=== PATIENT | female | born 1975 | race Caucasian/White ===

== ENCOUNTER 2017-03-18 14:16 | Observation (INO) | payer BC ==
[2017-03-18] MEDS ORDERED: Aspirin Low Dose CHEW TAB* 81 MG PO ONE (15:10)
[2017-03-18 15:42] LABS: Hematocrit 34 % (35-47); Hemoglobin 10.5 g/dl (12.0-16.0); Mean Corpuscular HGB Conc 31 g/dl (31-36); Mean Corpuscular Hemoglobin 22 pg (27-31); Mean Corpuscular Volume 71 fL (80-97); Mean Platelet Volume 8 um3 (7.4-10.4); Red Blood Count 4.75 10^6/ul (4.0-5.4); Red Cell Distribution Width 16 % (10.5-15); White Blood Count 9.2 10^3/ul (3.5-10.8)
--- NOTE | 2017-03-18 15:43 | RAD ---
INDICATION: Chest pain. COMPARISON: There are no prior studies available for comparison. TECHNIQUE: A portable view of the chest was obtained. FINDINGS: Cardiac and mediastinal contours appear to be within normal limits. The lungs are clear. No pleural effusion is seen. IMPRESSION: NO EVIDENCE FOR ACUTE DISEASE.
[2017-03-18 15:44] LABS: Add Diff/Slide Review? Slide Review Added; Comments Flag Yes
[2017-03-18 16:09] LABS: Albumin 4.3 g/dL (3.2-5.2); BUN/Creatinine Ratio 21.6 (8-20); Calcium 9.2 mg/dL (8.6-10.3); EGFR African American 111.8 (>60); EGFR Non-African American 86.9 (>60); Globulin 2.9 g/dL (2-4); Potassium 3.9 mmol/L (3.5-5.0); Total Bilirubin 0.4 mg/dL (0.2-1.0); Total Protein 7.2 g/dL (6.4-8.9)
[2017-03-18] MEDS ORDERED: Ondansetron INJ* 2 MG/ML VIAL IV PRN (16:54)
[2017-03-18] MEDS ORDERED: Acetaminophen TAB* 325 MG PO PRN (16:54)
[2017-03-18] MEDS ORDERED: Iohexol 350* (CONTRAST) 500 ML MDV IV ONE (17:04)
--- NOTE | 2017-03-18 17:04 | ED ---
I, Oh,Laureano, scribed for Lorenza Bell MD on 03/18/17 at 1601 . HPI Chest Pain - HPI Summary HPI Summary: This 41 y/o female presents to ED for intermittent, persistent chest pressure since 2 weeks ago. Pt also reports fatigue and bilat calf pain. Deep breath does not make pain worse. Pt is noted to be tearful at triage. She is calm and answering oriented question calmly at time of initial evaluation. She was evaluated by her primary care provider, Dr. Lima, 5 days ago, and currently have CTA chest upcoming. PMHx includes HTN. Denies Hx of CAD or other cardiac dz. FHx is negative for cardiac dz but positive for unspecified blood clotting disorder to mother. Pt lives with . Nonsmoker and nondrinker. Pt has remote hx of control use. - History of Current Complaint Chief Complaint: EDChestWallPain Time Seen by Provider: 03/18/17 15:12 Hx Obtained From: Patient, Family/Carpet Inspector Finished - present at bedside, Medical Records Onset/Duration: Started Weeks Ago, Atraumatic, Still Present Timing: Intermittent Pain Intensity: 3 Pain Scale Used: 0-10 Numeric Chest Pain Location: Diffuse Chest Pain Radiates: No Character: Pressure/Squeezing Aggravating Factor(s): Nothing Alleviating Factor(s): Nothing Associated Signs and Symptoms: Positive: Chest Pain, Calf Pain/Swelling - bilat calf pain, Other: - fatigue - Allergy/Home Medications Allergies/Adverse Reactions: Allergies Allergy/AdvReac Type Severity Reaction Status Date / Time Penicillins Allergy Unknown Verified 03/18/17 14:22 Reaction Details Sulfa Antibiotics Allergy Unknown Verified 03/18/17 14:22 Reaction Details Home Medications: Home Medications Losartan TAB* [Cozaar TAB*] 50 mg PO DAILY 03/18/17 [History Confirmed 03/18/17] cloNIDine TAB* [Catapres 0.1 MG TAB*] 0.1 mg PO BEDTIME 03/18/17 [History Confirmed 03/18/17] PMH/Surg Hx/FS Hx/Imm Hx Cardiovascular History: Reports: Hx Hypertension Denies: Hx Coronary Artery Disease Infectious Disease History: Denies: Traveled Outside the [place] in Last 30 Days - Family History Known Family History: Positive: Blood Disorder - Mother with possible DVT, Other - Mother -- lung CA - Social History Lives: With Family - Alcohol Use: None Hx Substance Use: No Substance Use Type: Reports: None Hx Tobacco Use: No Smoking Status (MU): Never Smoked Tobacco Review of Systems Positive: Fatigue. Negative: Fever Positive: Chest Pain - chest pressure Positive: Other - bilat calf pain All Other Systems Reviewed And Are Negative: Yes Physical Exam Triage Information Reviewed: Yes Vital Signs On Initial Exam: Initial Vitals Temp Pulse Resp BP Pulse Ox 99.8 F 105 20 179/103 100 03/18/17 14:17 03/18/17 14:17 03/18/17 14:17 03/18/17 14:17 03/18/17 14:17 Vital Signs Reviewed: Yes Appearance: Positive: Well-Appearing, No Pain Distress Skin: Positive: Warm, Skin Color Reflects Adequate Perfusion, Dry Head/Face: Positive: Normal Head/Face Inspection Eyes: Positive: EOMI, DUC Neck: Positive: Supple, Nontender Respiratory/Lung Sounds: Positive: Clear to Auscultation, Breath Sounds Present Cardiovascular: Positive: RRR, Pulses are Symmetrical in both Upper and Lower Extremities. Negative: Murmur, Rub, Leg Edema Left, Leg Edema Right, Other - gallops Musculoskeletal: Positive: Strength/ROM Intact Neurological: Positive: Sensory/Motor Intact, Alert, Oriented to Person Place, Time, CN Intact II-III Psychiatric: Positive: Other - teary eyes AVPU Assessment: Alert Diagnostics - Vital Signs Vital Signs Temp Pulse Resp BP Pulse Ox 03/18/17 14:17 99.8 F 105 20 179/103 100 - Laboratory Lab Results: Lab Results 03/18/17 03/18/17 03/18/17 Range/Units 15:25 15:25 15:25 WBC 9.2 (3.5-10.8) 10^3/ul RBC 4.75 (4.0-5.4) 10^6/ul Hgb 10.5 L (12.0-16.0) g/dl Hct 34 L (35-47) % MCV 71 L (80-97) fL MCH 22 L (27-31) pg MCHC 31 (31-36) g/dl RDW 16 H (10.5-15) % Plt Count 306 (150-450) 10^3/ul MPV 8 (7.4-10.4) um3 Neut % (Auto) 67.7 (38-83) % Lymph % (Auto) 21.5 L (25-47) % Whitley % (Auto) 7.8 (1-9) % Eos % (Auto) 2.3 (0-6) % Baso % (Auto) 0.7 (0-2) % Absolute Neuts (auto) 6.2 (1.5-7.7) 10^3/ul Absolute Lymphs (auto) 2.0 (1.0-4.8) 10^3/ul Absolute Monos (auto) 0.7 (0-0.8) 10^3/ul Absolute Eos (auto) 0.2 (0-0.6) 10^3/ul Absolute Basos (auto) 0.1 (0-0.2) 10^3/ul Absolute Nucleated RBC 0.01 10^3/ul Nucleated RBC % 0.1 D-Dimer, Quantitative (Less Than 230) ng/mL Sodium 137 (133-145) mmol/L Potassium 3.9 (3.5-5.0) mmol/L Chloride 103 (101-111) mmol/L Carbon Dioxide 29 (22-32) mmol/L Anion Gap 5 (2-11) mmol/L BUN 16 (6-24) mg/dL Creatinine 0.74 (0.51-0.95) mg/dL Est GFR ( Amer) 111.8 (>60) Est GFR (Non-Af Amer) 86.9 (>60) BUN/Creatinine Ratio 21.6 H (8-20) Glucose 117 H (70-100) mg/dL Lactic Acid 0.8 (0.5-2.0) mmol/L Calcium 9.2 (8.6-10.3) mg/dL Total Bilirubin 0.40 (0.2-1.0) mg/dL AST 14 (13-39) U/L ALT 11 (7-52) U/L Alkaline Phosphatase 56 (34-104) U/L Troponin I 0.00 (<0.04) ng/mL Total Protein 7.2 (6.4-8.9) g/dL Albumin 4.3 (3.2-5.2) g/dL Globulin 2.9 (2-4) g/dL Albumin/Globulin Ratio 1.5 (1-3) Beta HCG, Quant 1.54 mIU/mL 03/18/17 Range/Units 15:25 WBC (3.5-10.8) 10^3/ul RBC (4.0-5.4) 10^6/ul Hgb (12.0-16.0) g/dl Hct (35-47) % MCV (80-97) fL MCH (27-31) pg MCHC (31-36) g/dl RDW (10.5-15) % Plt Count (150-450) 10^3/ul MPV (7.4-10.4) um3 Neut % (Auto) (38-83) % Lymph % (Auto) (25-47) % Whitley % (Auto) (1-9) % Eos % (Auto) (0-6) % Baso % (Auto) (0-2) % Absolute Neuts (auto) (1.5-7.7) 10^3/ul Absolute Lymphs (auto) (1.0-4.8) 10^3/ul Absolute Monos (auto) (0-0.8) 10^3/ul Absolute Eos (auto) (0-0.6) 10^3/ul Absolute Basos (auto) (0-0.2) 10^3/ul Absolute Nucleated RBC 10^3/ul Nucleated RBC % D-Dimer, Quantitative 231 H (Less Than 230) ng/mL Sodium (133-145) mmol/L Potassium (3.5-5.0) mmol/L Chloride (101-111) mmol/L Carbon Dioxide (22-32) mmol/L Anion Gap (2-11) mmol/L BUN (6-24) mg/dL Creatinine (0.51-0.95) mg/dL Est GFR ( Amer) (>60) Est GFR (Non-Af Amer) (>60) BUN/Creatinine Ratio (8-20) Glucose (70-100) mg/dL Lactic Acid (0.5-2.0) mmol/L Calcium (8.6-10.3) mg/dL Total Bilirubin (0.2-1.0) mg/dL AST (13-39) U/L ALT (7-52) U/L Alkaline Phosphatase (34-104) U/L Troponin I (<0.04) ng/mL Total Protein (6.4-8.9) g/dL Albumin (3.2-5.2) g/dL Globulin (2-4) g/dL Albumin/Globulin Ratio (1-3) Beta HCG, Quant mIU/mL Result Diagrams: 03/18/17 15:25 03/18/17 15:25 Lab Statement: Any lab studies that have been ordered have been reviewed, and results considered in the medical decision making process. - Radiology cxr Xray Interpretation: No Acute Changes Radiology Interpretation Completed By: Radiologist - EKG 1427 Cardiac Rate: NL EKG Rhythm: Sinus Rhythm ST Segment: Normal Ectopy: None Chest Pain Course/Dx - Course Course Of Treatment: 41 yo female in with long standing cp, one cad risk factor of htn, and family hx of dvt (mom later was diagnosed with cancer). CP was worse today at 230 pm and will need obv (as discussed with Dr. Velez) to fully rule her out. DDimer added on - Diagnoses Provider Diagnoses: Chest pain - Provider Notifications Discussed Care Of Patient With: Dr. Velez (Hospitalist) at 1617 PM Instructed by Provider To: Admit As Inpatient Discharge - Discharge Plan Condition: Stable Disposition: ADMITTED TO [facility] Referrals: Radha Lima MD [Primary Care Provider] - The documentation as recorded by the Alexi tello Soohyun accurately reflects the service I personally performed and the decisions made by me, Lorenza Bell MD.
--- NOTE | 2017-03-18 18:14 | RAD ---
INDICATION: Chest pain. COMPARISON: Correlation is made with a prior chest x-ray study from March 18, 2017. TECHNIQUE: A CT angiogram of the chest was performed with intravenous following intravenous injection of 102 ml of Omnipaque 350 nonionic contrast. Contiguous axial sections were obtained from the lung apices through the lung bases. Images were reconstructed in the coronal and sagittal planes. The exam was performed twice due to suboptimal opacification of the pulmonary arteries. FINDINGS: There is suboptimal opacification of the pulmonary arteries limiting the study. No intraluminal filling defect or pulmonary embolism is seen. The heart is within normal limits in size. No pericardial effusion is present. The thoracic aorta is normal in caliber and demonstrates homogeneous contrast opacification. No significant enlarged mediastinal or hilar lymph nodes are seen. The lungs are clear. No pleural effusion is seen. No significant focal osseous abnormality is seen. The results of this exam were discussed with the referring clinician. IMPRESSION: SUBOPTIMAL OPACIFICATION OF THE PULMONARY ARTERIES LIMITING THE EXAM, NO PULMONARY EMBOLISM IS SEEN. CONSIDER REPEAT IMAGING.
[2017-03-18] MEDS: amLODIPine TAB* 5 MG PO SCH (21:49)
--- NOTE | 2017-03-18 23:33 | HP ---
HISTORY AND PHYSICAL: DATE OF ADMISSION: 03/18/17 PRIMARY CARE PROVIDER: Dr. Lima. ATTENDING PHYSICIAN WHILE IN THE HOSPITAL: Era Velez DO *(report dictated by Star Colon NP). CHIEF COMPLAINT: Chest pain. HISTORY OF PRESENT ILLNESS: Ms. Salcido is a 41-year-old female patient. She carries a history of hypertension which the patient states she has been having difficulty with control over the last couple weeks. Dr. Lima has been working closely with the patient. She has increased her losartan recently and recently also added clonidine at bedtime, actually last . The patient states she had been taking her medication as prescribed, but she has noticed over the last couple weeks, she has had chest tightness and pressure in the center of her chest, both with and without exertion. She says that at times when she has this discomfort, she gets short of breath sometimes. Sometimes, she feels a little nauseous and she does not feel well. She also said that she has had some exertional chest pressure as well. She says that the frequency of this has been increasing as the intensity. She says that she did feel short of breath yesterday with the discomfort. She had discomfort today around 1:30 while at work. She works at a preschool. Again, center of her chest, radiating into her back. She just felt like she could not breathe and she felt like she was having some discomfort and did not feel right. She called her primary and at this point, it was felt that she should be evaluated in the ER because she was continuing to have these symptoms. She denies any recent fevers or chills. No rhinorrhea or sore throat. There has been no recent trips or travels. She denies having any calf discomfort or leg swelling and no pain with inspiration and no reproducible pain. Because of the recurrence of the symptoms and the fact that her story was concerning, hospitalist service was asked to evaluate for admission for possible acute coronary syndrome. PAST MEDICAL HISTORY: Significant for hypertension. PAST SURGICAL HISTORY: She had a . HOME MEDICATIONS: Include: 1. Losartan 50 mg daily. 2. Clonidine 0.1 mg at bedtime. ALLERGIES TO MEDICATIONS: Include PENICILLIN and SULFA. FAMILY HISTORY: Her mother had a history of lung cancer and DVT. Father had COPD. SOCIAL HISTORY: She does not smoke. She rarely drinks alcohol. She is with children. Surrogate decision maker is her , Rishi. REVIEW OF SYSTEMS: There is no documented fever. She denies having any significant weight change. There was no double vision. There is no ear discharge. She denies having any rhinorrhea. There is no sore throat. No thyroid enlargement. There was chest pain per my HPI. There was no orthopnea. No nocturnal dyspnea. There was no abdominal pain. No nausea. No vomiting. No dysuria. No frequency. No seizure. No loss of consciousness. No pruritus. No skin ulcerations. Review of 14 systems completed, all others negative. PHYSICAL EXAMINATION GENERAL: At this time, Ms. Salcido is a 41-year-old female patient. She is sitting in the ER stretcher. She does not appear to be in any acute distress. VITAL SIGNS: Blood pressure initially 179/103, now it is 149/93 with a pulse of 105 initially, now it is 95, respirations 18, O2 sat 100%, and temperature 98.6. HEENT: Head is atraumatic and normocephalic. Eyes: EOMs are intact. Sclerae are anicteric and not pale. Throat: Oral mucosa appears to be moist. No oropharyngeal erythema. NECK: Supple. LUNGS: Clear to auscultation bilaterally. No wheezes, rales, or rhonchi. HEART: Sounds S1, S2. Regular rate and rhythm. No murmurs, rubs, or gallops. ABDOMEN: Soft, flat, and nontender. Bowel sounds present. EXTREMITIES: Pulses were 2+ throughout. She is able to move all 4 extremities with 5/5 strength. NEUROLOGIC: The patient is awake, she is alert, and she is oriented x3. Tongue midline. Water Reclamation Systems Operator were equal. No gross focal deficits. SKIN: Grossly intact. LABORATORY DATA AND DIAGNOSTIC STUDIES: Today revealed WBC of 9.2, RBC of 4.75 , hemoglobin 10.5, hematocrit 34, platelet count 306. D-dimer was 231. Sodium 137, potassium 2.9, chloride of 103, bicarb 29, BUN 16, creatinine of 0.74, glucose 117, lactic 0.8, calcium 9.2. Total bili 0.4, AST 14, ALT 11, alk phos 56. Troponin 0. Albumin of 4.3. Beta HCG was 1.54. She had a chest x-ray obtained today, which revealed no evidence for acute disease. She had an EKG obtained today as well, which revealed a normal sinus rhythm, rate of 94. She did have some subtle depression in V5 and V4 only. There was wandering baseline. No T-wave inversions or any ST elevations and no previous EKG for comparison. Old medical records were reviewed. ASSESSMENT AND PLAN: Ms. Salcido is a 41-year-old female patient coming in to the ER today with complaints of chest discomfort with and without exertion and increasing in frequency and intensity and described as a pressure like someone in her chest, sometimes associated with shortness of breath and nausea. She will be admitted under observation status for: 1. Chest pain: This is concerning for possible acute coronary syndrome. Fortunately, her EKG does not show acute ischemia and the troponin initially was negative. My plan at this point is to cycle her troponins, order a stress test. If the troponin is elevated, I will get Cardiology involved. She did get an aspirin already. I will check a lipid panel in the morning. We will get an A1c and will continue to follow. The chest pain also may be related to uncontrolled hypertension. She recently was started on clonidine and it does not appear that she is tolerating this well. She is having insomnia since starting this and feeling restless which can be side effects of clonidine according to UpToDate and looking at the side effects of the medication. At this point, I would go ahead and stop the clonidine, put her on Norvasc at 10 mg daily at bedtime as this will help her. As also in the differential of this chest discomfort, she may be having esophageal spasm which a calcium channel stephon may help. So, I will put her on this medication for now and I will continue to monitor the chest pain. Again, we will do the workup and I am also getting a CTA because her D-dimer was mildly elevated. 2. Hypertension: Again, blood pressure initially when she came was in the 170s. I am going to add on Norvasc at bedtime 10 mg. I will continue the losartan and continue to follow. 3. DVT prophylaxis. She is low risk. She will be placed on SCDs. 4. Code status: Full code. 5. Fluids, electrolytes, and nutrition: She can have a heart healthy diet and n.p.o. after midnight. TIME SPENT: Time spent on the admission was approximately 60 minutes; greater than half the time was spent [id number] with the patient obtaining my history and physical, other half the time spent going over the plan of care with the patient and implementing plan of care. I did discuss the plan of care with my attending, Dr. Velez; she is in agreement. STAR COLON NP CC: Dr. Lima * [id number]/[facility] #: [id number] [place]
[2017-03-19 07:04] LABS: Hematocrit 34 % (35-47); Hemoglobin 10.7 g/dl (12.0-16.0); Mean Corpuscular HGB Conc 31 g/dl (31-36); Mean Corpuscular Hemoglobin 22 pg (27-31); Mean Platelet Volume 8 um3 (7.4-10.4); Red Blood Count 4.83 10^6/ul (4.0-5.4); Red Cell Distribution Width 17 % (10.5-15); White Blood Count 10.3 10^3/ul (3.5-10.8)
[2017-03-19 07:15] LABS: Comments Flag Yes; Mean Corpuscular Volume 71 fL (80-97)
[2017-03-19 07:16] LABS: BUN/Creatinine Ratio 14.3 (8-20); Calcium 8.9 mg/dL (8.6-10.3); EGFR African American 119.2 (>60); EGFR Non-African American 92.7 (>60); HDL Cholesterol 44.8 mg/dL; Potassium 3.8 mmol/L (3.5-5.0)
[2017-03-19] MEDS ORDERED: Aspirin EC Low Dose* 81 MG TAB.EC PO SCH (09:00)
[2017-03-19] MEDS ORDERED: Losartan TAB* 25 MG PO SCH (09:00)
--- NOTE | 2017-03-19 12:24 | RAD ---
Edited for charges. INDICATION: Chest pain, hypertension, family history of heart disease. COMPARISON: None. TECHNIQUE: 10.990 mCi of Tc-99m Myoview were administered IV. SPECT images of the heart were obtained. Later on the same day under the direction of Dr. Estrada, an exercise stress test was performed. The patient achieved a peak heart rate of 162 bpm, 85 % of the age- predicted maximum. Subsequently, the patient was given an IV injection of 25.370 mCi Tc- 99m Myoview. SPECT images of the heart were obtained and a gated wall motion study was performed. FINDINGS: Gated wall motion images were obtained at stress and demonstrate wall motion to be within normal limits. The calculated left ventricular ejection fraction is 64 % at stress. Estimated LEFT ventricular end diastolic volume is 77 mL. TID 1.08. Based on review of the attenuation corrected and non corrected images the distribution of radiopharmaceutical within the myocardium on the stress and rest images is within normal limits. Photopenia related to the RV insertion noted. No fixed or reversible regions of hypoperfusion evident. IMPRESSION: 1. No evidence for stress induced myocardial ischemia or presence of an infarct. 2. Normal left ventricular wall motion and ejection fraction. ASSESSMENT: LOW RISK. Based on imaging criteria from ACC/AHA 2002 Guideline Update for the Management of Patients With Chronic Stable Angina Table 23. Noninvasive Risk Stratification. MTDD
[2017-03-19 14:28] LABS: TSH (Thyroid Stimulating Horm) 4.46 mcIU/mL (0.34-5.60)
[2017-03-19 16:01] VITALS: BP 130/73
--- NOTE | 2017-03-19 18:24 | RAD ---
INDICATION: Elevated d-dimer. COMPARISON: There are no prior studies available for comparison. TECHNIQUE: Multiple real-time, color flow and Doppler tracings of both lower extremities were obtained. FINDINGS: The common femoral, femoral, profunda femoral and popliteal veins all demonstrate normal compressibility, augmentation with compression and phasic response with respiration. The posterior tibial and peroneal veins demonstrate normal compressibility and augmentation with compression. IMPRESSION: NO EVIDENCE FOR DEEP VENOUS THROMBOSIS.
[2017-03-19] MEDS: amLODIPine TAB* 5 MG PO SCH (18:45)
--- NOTE | 2017-03-20 22:48 | DS ---
CC: Dr. Radha Lima DISCHARGE SUMMARY: DATE OF ADMISSION: 03/18/17 DATE OF DISCHARGE: 03/19/17 PRIMARY CARE PROVIDER: Dr. Radha Lima. DISCHARGING PROVIDER: YARI Sawant. SUPERVISING PHYSICIAN: Maria Elena Clifton MD. PRIMARY DISCHARGE DIAGNOSES: 1. Chest pain. 2. Hypertension. DISCHARGE MEDICATIONS: 1. Losartan 50 mg p.o. daily. 2. Amlodipine 10 mg p.o. at bedtime. MEDICATION CHANGES: 1. Stop clonidine. 2. Start amlodipine. HOSPITAL IMAGIN. Chest x-ray demonstrates no evidence for acute disease. 2. CTA of the chest shows no evidence for PE, but there is suboptimal opacification of the pulmonar y arteries limiting the exam. 3. Lower extremity Dopplers shows no evidence for DVT. 4. Nuclear stress test is a low risk study without evidence for ischemia or infarct. 5. EKG shows sinus rhythm without ischemic changes. HOSPITAL COURSE: This is a 41-year-old female with history of hypertension, who presented to the em ergency department with complaints of chest pain and shortness of breath. The patient's symptoms lerma ve been intermittent and generally associated with exertion for the last couple of weeks. She has a strong family history of hypertension and has been seen by her primary care provider in order to ma nage her hypertension. Her dose of losartan had recently been increased and she was started on clon idine for additional blood pressure control. She reported that since starting clonidine, she was lerma ving difficulty sleeping and reported profound fatigue. She has also had a rather persistent headac he for several weeks. She is unable to state really when this started or any periods of relief. Sh e denies any significant influence in her headache symptoms since initiating or increasing some of h er antihypertensive medications. When the patient reached the hospital, initial labs were largely unremarkable. She had a CBC that d id show a microcytic anemia with hemoglobin of 10.5, MCV of 71. Her D-dimer was mildly elevated at 2 31. Comprehensive metabolic panel was within normal limits and initial troponin was negative. The patient was subsequently admitted to observation status and underwent serial troponins and stress te sting. The patient reported that she continued to have some intermittent pressure sensation in her chest, t kourtney of lesser severity during her time in the hospital. Serial troponins remained negative. Fasti ng cholesterol showed a total cholesterol of 178 with an LDL of 101 and HDL of 44. TSH was checked. TSH was checked which was slightly on the high side at 4.46, but still within normal limits. Her clonidine was discontinued in favor of amlodipine and her blood pressure control improved with that. At the time of admission in the emergency department, she had systolic pressures mostly in the 170 s and at the time of discharge, systolic pressures were between 130 and 140 mmHg. The patient underwent a CTA of her chest due to the elevated D-dimer and her complaints of chest jered n. This was read as no PE, but it was a suboptimal study. For this reason, rather than repeating th e study in this young female, a lower extremity Doppler ultrasound was performed to evaluate for pre sence of DVT which was negative. Her Well's score was 0 in combination with the negative lower extr emity Doppler, the probability of her chest pain being related to PE is extremely low. Stress testing was read as a low risk study. Discussed with the patient as to whether a workup had been completed by her primary care provider for secondary hypertension as she appears to be fairly a ctive, relatively young and a BMI of 24, severity of her hypertension is questionable in a young and otherwise healthy female. She states that she has a very strong family history of hypertension in all of her siblings starting at a very young age and did not think that this was usual. A TSH was a dded to her labs, which was essentially within normal limits. I would recommend serum catecholamine testing as well as a renal artery ultrasound. Her complaints of headache might simply be related to her hypertension, but thinking of a catecholamine producing tumor in this young female would be wor th investigation. DISPOSITION: The patient is being discharged to home with medication changes as outlined above. Re commend close followup with her primary care provider and the patient is instructed to continue to m onitor her blood pressure at home. As discussed above, would recommend serum catecholamine testing as well as renal artery ultrasound to evaluate for stenosis. YARI SAWANT [id number]/[facility] #: [id number]
== END 2017-03-19 19:03 | disposition home or self-care (01) ==
LOC: ED 14:16 → MEDTELE 16:51
PROVIDERS: ADMIT Hospitalist; ATTEND Internal Medicine
DX: R07.9 Chest pain, unspecified (principal); I10 Essential (primary) hypertension; Z79.899 Other long term (current) drug therapy; Z88.0 Allergy status to penicillin; Z88.2 Allergy status to sulfonamides; Z32.02 Encounter for pregnancy test, result negative
CPT/HCPCS: 36415; 71010; 71275; 78452; 80048; 80053; 80061; 83036; 83605; 84443; 84484; 84702; 85025; 85379; 93005; 93017; 93970; 99283; A9270-GY; A9502; G0378; Q9967

== ENCOUNTER 2020-03-08 12:47 | Emergency (ER) | payer BC ==
[2020-03-08] MEDS ORDERED: Labetalol IV* 5 MG/ML 20 ML VIAL IV PUSH ONE (14:01)
--- NOTE | 2020-03-08 14:08 | ED ---
Hypertension - HPI Summary HPI Summary: This patient is a 44 y/o female presenting to [facility] c/o elevated blood pressure. Patient has hx of HTN for which she takes Losartan 50 mg. She states she has been compliant with her medications. In the last couple of days she has been experiencing headaches and occasional dizziness. She has taken her blood pressure at home and it has been elevated. She denies chest pain, shortness of breath, fever, chills, nausea, vomiting, diarrhea, constipation. Denies any recent travel or sick contacts. Patient has been quarantined at home. - History of Current Complaint Chief Complaint: EDHypertension Stated Complaint: HIGH BLOOD PRESSURE Time Seen by Provider: 03/08/20 13:50 Hx Obtained From: Patient Onset/Duration: Started Days Ago, Still Present Timing: Lasting Days Aggravating Factor(s): Nothing Alleviating Factor(s): Nothing Associated Signs & Symptoms: Headaches, Dizziness, Other: - NEGATIVE: chest pain , SOB, fever, chills, nausea, vomiting, diarrhea, constipation - Allergies/Home Medications Allergies/Adverse Reactions: Allergies Allergy/AdvReac Type Severity Reaction Status Date / Time MS Penicillins [Penicillins] Allergy Unknown Verified 07/08/19 14:41 Reaction Details MS Sulfa Antibiotics Allergy Unknown Verified 07/08/19 14:41 [Sulfa Antibiotics] Reaction Details Home Medications: Home Medications Losartan TAB* [Cozaar TAB*] 50 mg PO DAILY 03/18/17 [History Confirmed 03/08/20] Norethindrone [Deblitane] 0.35 mg PO DAILY 03/08/20 [History Confirmed 03/08/20] PMH/Surg Hx/FS Hx/Imm Hx Endocrine/Hematology History: Denies: Hx Diabetes Cardiovascular History: Reports: Hx Angina - Pt describes chest pressure, Hx Hypertension Denies: Hx Coronary Artery Disease History: Denies: Hx Renal Disease Sensory History: Denies: Hx Contacts or Glasses, Hx Hearing Aid Opthamlomology History: Denies: Hx Contacts or Glasses - Surgical History Surgical History: Yes Surgery Procedure, Year, and Place: Had C section, TUBAL Infectious Disease History: No Infectious Disease History: Denies: Traveled Outside the [place] in Last 30 Days - Family History Known Family History: Positive: Blood Disorder - Mother with possible DVT, Other - Mother -- lung CA - Social History Alcohol Use: Rare Hx Substance Use: No Substance Use Type: Reports: None Hx Tobacco Use: No Smoking Status (MU): Never Smoked Tobacco Review of Systems Negative: Fever, Chills Negative: Chest Pain Negative: Shortness Of Breath Negative: Vomiting, Diarrhea, Nausea, Other - NEGATIVE: constipation Neurological/Mental Status: Other - POSITIVE: dizziness Positive: Headache All Other Systems Reviewed And Are Negative: Yes Physical Exam - Summary Physical Exam Summary: VITAL SIGNS: Reviewed. GENERAL: Patient is a well-developed and nourished female who is lying comfortable in the stretcher. Patient is not in any acute respiratory distress. Manual blood pressure is 198/124. HEAD AND FACE: No signs of trauma. No ecchymosis, hematomas or skull depressions. No sinus tenderness. EYES: PERRLA, EOMI x 2, No injected conjunctiva, no nystagmus. EARS: Hearing grossly intact. Ear canals and tympanic membranes are within normal limits. MOUTH: Oropharynx within normal limits. NECK: Supple, trachea is midline, no adenopathy, no JVD, no carotid bruit, no c- spine tenderness, neck with full ROM. CHEST: Symmetric, no tenderness at palpation LUNGS: Clear to auscultation bilaterally. No wheezing or crackles. CVS: Regular rate and rhythm, S1 and S2 present, no murmurs or gallops appreciated. ABDOMEN: Soft, non-tender. No signs of distention. No rebound no guarding, and no masses palpated. Bowel sounds are normal. EXTREMITIES: FROM in all major joints, no edema, no cyanosis or clubbing. NEURO: Alert and oriented x 3. No acute neurological deficits. Speech is normal and follows commands. SKIN: Dry and warm Triage Information Reviewed: Yes Vital Signs On Initial Exam: Initial Vitals Temp Pulse Resp BP Pulse Ox 98.3 F 83 18 194/133 100 03/08/20 12:48 03/08/20 12:48 03/08/20 12:48 03/08/20 12:48 03/08/20 12:48 Vital Signs Reviewed: Yes Procedures - Sedation Patient Received Moderate/Deep Sedation with Procedure: No Diagnostics - Vital Signs Vital Signs Temp Pulse Resp BP Pulse Ox 03/08/20 13:58 190/120 03/08/20 12:48 98.3 F 83 18 194/133 100 - Laboratory Result Diagrams: 03/08/20 13:59 03/08/20 13:59 Lab Statement: Any lab studies that have been ordered have been reviewed, and results considered in the medical decision making process. - Radiology Chest XR Radiology Interpretation Completed By: Radiologist Summary of Radiographic Findings: IMPRESSION: No active cardiopulmonary disease is noted. Dr. Sebastian has reviewed this report. - EKG 1254 Cardiac Rate: NL - at 71 bpm EKG Rhythm: Sinus Rhythm Summary of EKG Findings: EKG at 1254 shows normal sinus rhythm at a rate of 71 bpm. No STEMI. This EKG was interpreted and reviewed by ED physician. Re-Evaluation - Re-Evaluation First Eval Re-Evaluation Time: 14:53 Change: Improved Comment: Blood pressure is 144/96 after Labetalol. Patient denies any symptoms. Hypertension Course/Dx - Course Assessment/Plan: This patient is a 44 y/o female presenting to [facility] c/o elevated blood pressure. Patient has hx of HTN for which she takes Losartan 50 mg. She states she has been compliant with her medications. In the last couple of days she has been experiencing headaches and occasional dizziness. She has taken her blood pressure at home and it has been elevated. She denies chest pain , shortness of breath, fever, chills, nausea, vomiting, diarrhea, constipation. Denies any recent travel or sick contacts. Patient has been quarantined at home. In the ED course the patient was placed in a cardiac rn, IV access was obtained. Past medical records reviewed. Blood test w/o a significant abnormality. Chest x-ray impression: No active cardiopulmonary disease. The patient was given labetalol 20 mg IV. The blood pressure now is 144/96. The patients symptoms have resolved. I discussed all the findings and test results with the patient. Patient was instructed to return to the emergency room immediately if any of the symptoms returns or worsens. Plan of care was discussed with the patient and she understands and agrees. All questions were answered at patient satisfaction. There were no further complaints or concerns. Lung exam before discharge: CTA B/L. Good air exchange. No wheezing or crackles heard. CVS: S1 and S2 present. No murmurs appreciated. Patient is alert and oriented x 3. Patient is hemodynamically stable. Patient will be discharged home with follow up from her PCP in the next 2-3 days. - Diagnoses Provider Diagnoses: Uncontrolled hypertension - Critical Care Time Critical Care Statement: Critical care time is provided exclusive of any time spent performing procedures. Discharge ED - Sign-Out/Discharge Documenting (check all that apply): Patient Departure - Discharged home - Discharge Plan Condition: Stable Disposition: HOME Patient Education Materials: Hypertension (ED) Referrals: Hilda James NP [Primary Care Provider] - Additional Instructions: FOLLOW UP WITH YOUR PRIMARY CARE PROVIDER IN 2-3 DAYS. RETURN TO THE EMERGENCY DEPARTMENT FOR ANY WORSENING OR NEW SYMPTOMS. - Billing Disposition and Condition Condition: STABLE Disposition: Home - Attestation Statements Document Initiated by Scribe: Yes Documenting Scribe: Arianna Erazo Provider For Whom Scribe is Documenting (Include Credential): Tyrone Sebastian MD Scribe Attestation: Arianna Prajapati scrmkiied for Tyrone Sebastian MD on 03/09/20 at 1225. Scribe Documentation Reviewed: Yes Provider Attestation: The documentation as recorded by the Arianna tello accurately reflects the service I personally performed and the decisions made by , Tyrone Sebastian MD Status of Scribe Document: Viewed
[2020-03-08 14:13] LABS: ABS Eosinophils 0.1 10^3/ul (0-0.6); ABS Lymphocytes 1.8 10^3/ul (1.0-4.8); ABS Monocytes 0.5 10^3/ul (0-0.8); ABS Neutrophils 6.8 10^3/ul (1.5-7.7); Eosinophil % 1.3 %; Hematocrit 44 % (35-47); Hemoglobin 14.7 g/dL (12.0-16.0); Lymphocyte % 19.3 %; Mean Corpuscular HGB Conc 33 g/dL (31-36); Mean Corpuscular Hemoglobin 29 pg (27-31); Mean Corpuscular Volume 88 fL (80-97); Mean Platelet Volume 8.5 fL (7.4-10.4); Platelet Count 278 10^3/uL (150-450); Red Cell Distribution Width 16 % (10-15); White Blood Count 9.3 10^3/uL (3.5-10.8)
[2020-03-08 14:30] LABS: ALT 17 U/L (7-52); AST 16 U/L (13-39); Albumin 4.5 g/dL (3.2-5.2); Albumin/Globulin Ratio 1.7 (1-3); Alkaline Phosphatase 63 U/L (34-104); Anion Gap 8 mmol/L (2-11); BUN/Creatinine Ratio 15.3 (8-20); Blood Urea Nitrogen 11 mg/dL (6-24); CO2 Carbon Dioxide 27 mmol/L (22-32); Calcium 9.5 mg/dL (8.6-10.3); Chloride 103 mmol/L (101-111); Creatine Kinase 68 U/L (10-223); EGFR Non-African American 88.4 (>60); Globulin 2.7 g/dL (2-4); Glucose 90 mg/dL (70-100); Potassium 3.7 mmol/L (3.5-5.0); Sodium 138 mmol/L (135-145); Total Protein 7.2 g/dL (6.4-8.9)
[2020-03-08 14:34] LABS: CKMB ng/mL 0.6 ng/mL (0.6-6.3)
[2020-03-08 14:52] LABS: TSH (Thyroid Stimulating Horm) 1.85 mcIU/mL (0.34-5.60)
[2020-03-08 14:56] LABS: Urine Appearance Cloudy; Urine Bilirubin Negative (Negative); Urine Blood 2+ (Negative); Urine Color Yellow; Urine Glucose Negative (Negative); Urine Ketones Negative (Negative); Urine Nitrite Negative (Negative); Urine Protein Negative (Negative); Urine Specific Gravity 1.011 (1.010-1.030); Urine Urobilinogen Negative (Negative)
[2020-03-08 15:03] LABS: Activated Partial Thrombo Time 36.1 seconds (26.0-38.0); INR 0.97 (0.82-1.09)
[2020-03-08 15:06] LABS: Urine Bacteria 1+ (Absent); Urine Red Blood Cell Trace(0-2/hpf) (Absent); Urine Squamous Epithelial Cell Present (Absent); Urine White Blood Cell Trace(0-5/hpf) (Absent)
[2020-03-08 15:23] VITALS: BP 143/89
[2020-03-10 08:26] LABS: % Iron Saturation 21 % (15-55); Iron 94 ug/dL (50-212); Total Iron Binding Capacity 455 mcg/dL (250-450); Transferrin 325 mg/dL (203-362)
[2020-03-10 08:46] LABS: Ferritin 34.6 ng/mL (11-307)
== END 2020-03-08 15:20 | disposition home or self-care (01) ==
LOC: ED 12:47
DX: I10 Essential (primary) hypertension (principal); R51 Headache; R42 Dizziness and giddiness; Z88.0 Allergy status to penicillin; Z88.2 Allergy status to sulfonamides; Z79.899 Other long term (current) drug therapy; Z98.51 Tubal ligation status
CPT/HCPCS: 36415; 71045; 80053; 81003; 81015; 82550; 82553; 82728; 83540; 83550; 83605; 83735; 83880; 84443; 84484; 85025; 85610; 85730; 87086; 93005; 96374; 99282